=== PATIENT | male | born 1970 | race Caucasian/White ===

== ENCOUNTER 2024-05-24 10:14 | Emergency (ER) | payer OTHER ==
[~2024-05-24] VITALS: Ht 175.3 cm; Wt 55.3 kg
[2024-05-24 10:26] VITALS: PULSE 83; RESP 18; TEMP 98; O2SAT 100
[2024-05-24 11:10] LABS: BASOPHILS % (AUTO) 0.8 % (0.0-2.0); EOSINOPHILS % (AUTO) 0.7 % (0.0-4.0); HEMATOCRIT 36.3 % (36-52); HEMOGLOBIN 12.3 g/dL (12.0-18.0); LYMPHOCYTES # (AUTO) 1.5 K/uL (2.0-11.5); LYMPHOCYTES % (AUTO) 40.9 % (20.5-51.1); MEAN CORPUSCULAR HEMOGLOBIN 30 pg (27-31); MEAN CORPUSCULAR HGB CONC 34 g/dL (33-37); MEAN CORPUSCULAR VOLUME 89.3 fL (80-94); MONOCYTES # (AUTO) 0.3 K/uL (0.8-1.0); MONOCYTES % (AUTO) 9.2 % (1.7-9.3); NEUTROPHILS # (AUTO) 1.7 K/uL (1.8-7.7); NEUTROPHILS % (AUTO) 48.4 % (42.2-75.2); PLATELET COUNT (AUTO) 288 K/uL (140-450); RED BLOOD CELL COUNT(AUTO) 4.06 MIL/uL (4.20-6.10); RED CELL DISTRIBUTION WIDTH 14.6 % (11.6-13.7); WHITE BLOOD COUNT (AUTO) 3.6 K/uL (4.8-10.8)
[2024-05-24 11:30] LABS: CALCIUM 9.2 mg/dL (8.5-10.1); CARBON DIOXIDE 16.3 mmol/L (21-32); CREATININE 0.9 mg/dL (0.6-1.3); POTASSIUM 3.3 mmol/L (3.5-5.1)
[2024-05-24 11:35] LABS: INR 1.13 (0.8-1.2); PARTIAL THROMBOPLASTIN TIME 25.7 secs (22-35.6); PROTHROMBIN TIME 11.8 secs (10.8-13.4)
[2024-05-24] MEDS: LORazepam 1 MG TAB PO ONE (12:03)
[2024-05-24 12:21] VITALS: O2SAT 100
[2024-05-24] MEDS: NACL 0.9% 2,000 ML IV ONE (12:23)
[2024-05-24 14:01] VITALS: BP 127/84; PULSE 70; RESP 24; TEMP 98.3
[2024-05-24 14:24] VITALS: O2SAT 95
[2024-05-24 14:42] LABS: AMPHETAMINE, URINE NEGATIVE ng/ml (NEG <=1000); BARBITURATE, URINE NEGATIVE ng/ml (NEG <=200); BENZODIAZEPINE, URINE POSITIVE ng/mL (NEG <=200); CANNABINOID, URINE NEGATIVE ng/mL (NEG <=50); COCAINE, URINE NEGATIVE ng/mL (NEG <=300)
[2024-05-24 14:43] LABS: OPIATE, URINE NEGATIVE ng/mL (NEG <=2000); PHENCYCLIDINE SCREEN,URINE NEGATIVE ng/mL (NEG <=25)
[2024-05-25] MEDS ORDERED: HYDR25CA1 PO (11:34)
== END 2024-05-24 14:31 | disposition home or self-care (01) ==
LOC: MED 10:14
DX: F41.9 Anxiety disorder, unspecified (principal); I11.0 Hypertensive heart disease with heart failure; I50.9 Heart failure, unspecified
CPT/HCPCS: 36415; 71045; 80048; 80305; 82009; 82803; 84484; 85025; 85610; 85730; 93005; 96360; 99285; J7030

== ENCOUNTER 2024-05-25 08:53 | Emergency (ER) | payer OTHER ==
[~2024-05-25] VITALS: Ht 175.3 cm; Wt 55.3 kg
[2024-05-25 08:58] VITALS: BP 135/96; PULSE 82; RESP 22; TEMP 97.4; O2SAT 100
[2024-05-25] MEDS: LORazepam 1 MG TAB PO ONE (10:18)
[2024-05-25] MEDS ORDERED: HYDR25CA1 PO (11:34)
[2024-05-25 11:45] VITALS: BP 131/76; PULSE 69; RESP 16; TEMP 97.7; O2SAT 100
== END 2024-05-25 11:45 | disposition home or self-care (01) ==
LOC: MED 08:53
DX: F41.9 Anxiety disorder, unspecified (principal); I11.0 Hypertensive heart disease with heart failure; I50.9 Heart failure, unspecified; J44.9 Chronic obstructive pulmonary disease, unspecified; Z79.899 Other long term (current) drug therapy
CPT/HCPCS: 99283

== ENCOUNTER 2024-05-30 14:29 | Emergency (ER) | payer OTHER ==
[~2024-05-30] VITALS: Ht 175.3 cm; Wt 54.9 kg
[~2024-05-30 14:29] MED LIST: HYDR25CA1 PO
[2024-05-30 14:34] VITALS: BP 118/85; PULSE 87; RESP 18; TEMP 97.5; O2SAT 100
[2024-05-30] MEDS: LORazepam 1 MG TAB PO ONE ×2 (15:25→16:13)
[2024-05-30] MEDS ORDERED: HYDR25CA1 PO (15:39)
[2024-05-30 16:51] VITALS: BP 115/87; PULSE 79; RESP 18; TEMP 97.5; O2SAT 100
== END 2024-05-30 16:51 | disposition home or self-care (01) ==
LOC: MED 14:29
DX: F41.9 Anxiety disorder, unspecified (principal); I10 Essential (primary) hypertension; Z79.899 Other long term (current) drug therapy
CPT/HCPCS: 99283